=== PATIENT | female | born 1975 | race Caucasian/White ===

== ENCOUNTER → 2023-11-01 10:49 | Outpatient (REF) | payer OTHER, SELFPAY | LOC: DHSLP 10:49 | PROVIDERS: ATTENDING PHYSICIAN Physician Assistant Medical | DX: G47.33 Obstructive sleep apnea (adult) (pediatric) (principal) | CPT/HCPCS: 95800 ==

== ENCOUNTER → 2024-02-11 10:44 | Outpatient (REF) | payer OTHER, SELFPAY | LOC: WDC 10:44 | PROVIDERS: ATTENDING PHYSICIAN Obstetrics & Gynecology Gynecology; FAMILY PHYSICIAN Family Medicine | DX: Z12.31 Encounter for screening mammogram for malignant neoplasm of breast (principal); Z01.419 Encounter for gynecological examination (general) (routine) without abnormal findings | CPT/HCPCS: 77063; 77067 ==

== ENCOUNTER 2024-03-26 06:23 | Day surgery (SDC) | payer OTHER, SELFPAY | END 2024-03-26 09:35 | disposition home or self-care (01) | LOC: GI 06:23 | PROVIDERS: ATTENDING PHYSICIAN Student in an Organized Health Care Education/Training Program | DX: Z12.11 Encounter for screening for malignant neoplasm of colon (principal); K64.0 First degree hemorrhoids; D12.3 Benign neoplasm of transverse colon; K62.1 Rectal polyp; K63.5 Polyp of colon; D12.2 Benign neoplasm of ascending colon; Z80.0 Family history of malignant neoplasm of digestive organs | CPT/HCPCS: 45385; 45380; 88305 ==

== ENCOUNTER 2024-03-26 09:37 | Emergency (ER) | payer OTHER, SELFPAY ==
[2024-03-26 09:53] VITALS: BP 148/87
--- NOTE | 2024-03-26 11:24 | ED.GENMED ---
History of Present Illness
General
Chief Complaint: Fall
Source: patient
Exam Limitations: none
Time Seen by Provider: 03/26/24 10:31
Nursing documentation reviewed up to this point in time: agreed with
History of Present Illness
History of Present Illness:
49-year-old female presenting to the emergency department after a trip and fall after walking postprocedural after colonoscopy while anesthesia was still wearing off. Landed on her right hand ongoing pinky discomfort. Denies additional trauma
otherwise feels well
Review of Systems
Review of Systems
Allergies reviewed?: Yes
All Other Systems: ROS reviewed and negative except as documented in HPI and ROS
Phy Exam
Physical Exam
Physical Exam:
GENERAL: Alert , in no apparent distress
EYE: pupils equal and reactive
NECK: Supple, no significant adenopathy.
ENT: o/p clr, mmm.
CARDIAC: Regular rate and rhythm .
LUNGS: Clear breath sounds bilaterally, no acute respiratory distress, no wheezes/rales/rhonchi
ABDOMEN: Soft, without focal tenderness, no r/g, no cvat
NEUROLOGICAL: Alert and oriented, no focal neuro deficits
SKIN: Warm and dry, skin intact.
MUSCULOSKELETAL: No edema, well perfused.
PSYCH: Normal and appropriate interaction.
Course
Orders/Labs/Results
Orders:
Orders
03/26/24 09:56
CR Hand - Right Min 3 Views Urgent
Comment:
Reason For Exam: Injury
Vital Signs
Initial and Last Documented VS:
Initial Vital Signs
Temp Pulse Resp BP Pulse Ox
98.1 F 82 16 148/87 99
03/26/24 09:53 03/26/24 09:53 03/26/24 09:53 03/26/24 09:53 03/26/24 09:53
Last Documented Vital Signs
Temp Pulse Resp BP Pulse Ox
98.1 F 82 16 148/87 99
03/26/24 09:53 03/26/24 09:53 03/26/24 09:53 03/26/24 09:53 03/26/24 09:53
Procedures
Splinting/Sling Placement
Right Proximal Fifth Finger:
Procedure completed by: Myself
Pre-splint extermity exam: neurovascular intact
Type of splint: aluminium finger
Splint material: aluminum-foam
Splint checked by provider?: Yes
Normal distal neurovascular exam?: Yes
MDM/Problems Addressed
MDM/Problems Addressed:
49-year-old female presenting to the emergency department today with concerns of right pinky discomfort after a fall prior to arrival. Fall was mechanical when she was recovering from anesthesia. On x-ray it was unclear if patient had a vascular
bed or a small nondisplaced fracture. This was with patient's discomfort was on the proximal phalanx of the fifth digit. Patient was splinted considering the possibility of a fracture and was given information for follow-up return precautions
given.
*Critical Care Note
Total Time (30-74mins, 75-104mins- exclusive of procedures): Not Applicable
ED Attending Note
-
Portions of this chart may have been created with voice recognition software.� Occasional wrong word or��sound alike� substitutions may have occurred due to the inherent limitations of voice recognition software.
Discharge Plan
Departure
Patient Disposition: Home (Routine Discharge)
Date of Disposition: 03/26/24
Time of Disposition: 11:26
Patient with high blood pressure during this ER visit?: No
Condition: Good
Covid-19: Not Applicable
Discharge Problem:
Finger fracture
Instructions: Finger Fracture ED
Referrals:
Azra Kunz MD [Family Provider] -
Chevy Fermin MD [Active] - Follow up in 5-7 days
Activity Restrictions/Additional Instructions:
You came to the emergency department today with concerns of finger discomfort after a fall. You may have a small fracture. Please use the splint and start to move as symptoms allow over the next few weeks. Please have close with orthopedics.
Return for any worsening, new or concerning symptoms.
Interventions
Interventions:
*Risk Screen - Suicide Last Done: 03/26/24 11:01
*General Assessment Last Done: 03/26/24 11:01
*Neglect/Abuse Screening Last Done: 03/26/24 11:01
ED- Fall Risk Assessment Last Done: 03/26/24 11:01
ED-Musculoskeletal Assessment Last Done: 03/26/24 11:01
ED- Neurological Assessment Last Done: 03/26/24 11:01
ED-Skin Assessment Last Done: 03/26/24 11:01
Discharge Date and Time
Print Language: ALB[place]
== END 2024-03-26 11:30 | disposition home or self-care (01) ==
LOC: EMR 09:37
PROVIDERS: EMERGENCY PHYSICIAN Student in an Organized Health Care Education/Training Program; FAMILY PHYSICIAN Family Medicine
DX: S62.646A Nondisplaced fracture of proximal phalanx of right little finger, initial encounter for closed fracture (principal); W01.0XXA Fall on same level from slipping, tripping and stumbling without subsequent striking against object, initial encounter
CPT/HCPCS: 99283; 29130; 73130